=== PATIENT | male | born 1965 | race Two or more races ===

== ENCOUNTER 2023-01-18 19:23 | Emergency (ER) | payer BC, SELFPAY ==
[2023-01-18 19:31] VITALS: BP 133/89; PULSE 100; RESP 18; TEMP 37.1; O2SAT 98; BMI 25.8
--- NOTE | 2023-01-18 19:43 | ECG_ITS ---
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
--- NOTE | 2023-01-18 19:45 | PC.NURSE ---
patient complaints of cough for 2 weeks. state now he is starting to feel SOB and have pain between shoulders from coughing so hard. patient states it is starting to affect his work. bilat inspiratory and expiratory wheezes heard with auscultation. cough sometimes produces white phlegm.
--- NOTE | 2023-01-18 19:50 | ED_ITS ---
HPI - SOB/Dyspnea General Chief Complaint: Upper Respiratory Infection Stated Complaint: DIFF BREATHING, CONGESTION Time Seen by Provider: 01/18/23 19:25 Source: patient Mode of arrival: walk-in History of Present Illness HPI Narrative: Patient is a 57-year-old male who presents to the emergency department for 2- week history of shortness of breath, cough, wheezing. He states he has not had any objective fevers but has had hot and cold chills. He denies chest pain but has developed thoracic back pain that is worse with coughing and movement in the last several days. He reports some sputum production with coughing, no hemoptysis. He is a 1 pack/day cigarette smoker. No medications given prior to arrival. Related Data Previous Rx's Medication Instructions Recorded intcbxgihdkevbw-pydnrstatsjggzt-SI 10 ml PO Q6H PRN cold symptoms 01/18/23 2 mg-30 mg-10 mg/5 mL oral syrup #200 mL (Bromfed DM) doxycycline hyclate 100 mg tablet 100 mg PO BID 10 days #20 tabs 01/18/23 methylprednisolone 4 mg tablets in See Rx Instructions .Route 01/18/23 a dose pack (Medrol (Jeff)) .COMPLEX #21 ea Allergies Allergy/AdvReac Type Severity Reaction Status Date / Time No Known Drug Allergies Allergy Verified 01/18/23 19:35 Review of Systems ROS Constitutional Reports: chills; Denies: fever Ears, nose, mouth, and throat Reports: nasal congestion; Denies: throat pain Cardiovascular Denies: chest pain Respiratory Reports: shortness of breath, cough and wheezing Gastrointestinal Reports: nausea and vomiting Genitourinary Denies: painful urination Musculoskeletal Reports: back pain Integumentary/Breast Denies: rash PFSH PFSH Social History Smoking status: Current every day smoker Exam Narrative Exam Narrative: Gen.: Awake, alert, in no distress Head: Normocephalic, atraumatic ENT: Moist mucous membranes Respiratory: No respiratory distress, dry cough noted with expiratory wheezing Cardio: Regular rate and rhythm Back: No bony tenderness of the T-spine or L-spine Extremities: Moves extremities equally Psych: Normal mood and affect Neuro: No focal neuro deficit Skin: Warm, dry, intact Constitutional Vital Signs, click to edit/add: Last Vital Signs Temp 98.7 F 01/18/23 19:31 Pulse 89 01/18/23 21:15 Resp 16 01/18/23 20:51 BP 133/89 01/18/23 19:31 Pulse Ox 96 01/18/23 21:15 O2 Del Method Room Air 01/18/23 21:15 Course Vital Signs Vital signs: Vital Signs Temperature 98.7 F 01/18/23 19:31 Pulse Rate 100 H 01/18/23 19:31 Respiratory Rate 18 01/18/23 19:31 Blood Pressure 133/89 01/18/23 19:31 Pulse Oximetry 98 01/18/23 19:31 Oxygen Delivery Method Room Air 01/18/23 19:31 Temperature 98.7 F 01/18/23 19:31 Pulse Rate 89 01/18/23 21:15 Respiratory Rate 16 01/18/23 20:51 Blood Pressure 133/89 01/18/23 19:31 Pulse Oximetry 96 01/18/23 21:15 Oxygen Delivery Method Room Air 01/18/23 21:15 MDM - SOB/Dyspnea MDM Narrative Medical decision making narrative: IV established, labs drawn and COVID swab obtained. Patient given IV fluids, breathing treatments, Solu-Medrol. Lab studies including troponin and D-dimer are within normal limits. EKG is unremarkable. Chest x-ray shows no evidence of acute cardiopulmonary changes. Patient was given breathing treatments in the ER with albuterol inhaler to go from the ER. He will be started on doxycycline, steroids, albuterol inhaler and Bromfed-DM for home. No hypoxia. He appears well-hydrated and nontoxic. Follow-up with PCP and return to the ER if symptoms change or worsen. Medical Records Attestation: I reviewed the patient's medical records. Lab Data Attestation: I reviewed the patient's lab results. Labs: Lab Results 01/18/23 01/18/23 Range/Units 19:50 20:20 WBC 13.8 H (4.0-11.0) 10^3/uL RBC 4.91 (4.70-6.10) 10^6/uL Hgb 15.5 (14.0-18.0) g/dL Hct 45.1 (42.0-54.0) % MCV 91.9 (80.0-94.0) fL MCH 31.6 (25.9-34.0) pg MCHC 34.4 (29.9-35.2) g/dL RDW 13.0 (11.0-15.0) % Plt Count 308 (150-450) 10^3/uL MPV 10.6 (9.5-13.5) fL Neut % (Auto) 62.9 (43.0-75.0) % Lymph % (Auto) 24.3 (20.5-60.0) % [place] % (Auto) 7.3 (1.7-12.0) % Eos % (Auto) 4.4 (0.9-7.0) % Baso % (Auto) 0.7 (0.2-2.0) % Neut # (Auto) 8.7 H (1.4-6.5) 10^3/uL Lymph # (Auto) 3.4 (1.2-3.8) 10^3/uL [place] # (Auto) 1.0 H (0.3-0.8) 10^3/uL Eos # (Auto) 0.6 (0.0-0.7) 10^3/uL Baso # (Auto) 0.1 (0.0-0.1) 10^3/uL Abs Immat Gran (auto) 0.05 H (0.00-0.03) 10^3/uL Imm/Tot Granulo (auto) 0.4 (0.0-0.5) % PT 10.0 (9.0-11.6) sec INR 0.94 D-Dimer 0.21 (<=0.59) mg/L FEU Sodium 138 (136-145) mmol/L Potassium 4.0 (3.5-5.1) mmol/L Chloride 103 (98-107) mmol/L Carbon Dioxide 26.0 (21.0-32.0) mmol/L Anion Gap 13.0 BUN 11.0 (7.0-18.0) mg/dL Creatinine 1.13 (0.70-1.30) mg/dL Est GFR ( Amer) >60 (>=60) Est GFR (Non-Af Amer) >60 (>=60) BUN/Creatinine Ratio 9.7 Glucose 80 (74-106) mg/dL Calcium 9.1 (8.5-10.1) mg/dL Total Bilirubin 0.6 (0.2-1.0) mg/dL AST 25 (15-37) U/L ALT 33 (16-63) U/L Alkaline Phosphatase 124 H (46-116) U/L Troponin I High Sens 5.4 (4.0-76.1) pg/mL NT-Pro-B Natriuret Pep 25.0 (<=900.0) pg/mL Total Protein 7.8 (6.4-8.2) g/dL Albumin 4.0 (3.4-5.0) g/dL Globulin 3.8 g/dL Albumin/Globulin Ratio 1.1 SARS-CoV-2 (PCR) Negative (NEGATIVE) Imaging Data Chest x-ray: Attestation: I have reviewed the pertinent imaging results. ECG Data Attestation: I personally reviewed and interpreted this ECG as follows: (Normal sinus rhythm at a rate of 86, no acute ST elevation or ectopy. EKG reviewed by attending physician) ECG interpretation date: 01/18/23 ECG interpretation time: 20:15 Discharge Plan Discharge Chief Complaint: Upper Respiratory Infection Clinical Impression: Bronchitis Patient Disposition: Home, Self-Care Time of Disposition Decision: 20:40 Condition: Good Mode of Transportation: Private Vehicle Prescriptions / Home Meds: New methylprednisolone [Medrol (Jeff)] 4 mg tablets,dose pack See Rx Instructions .ROUTE .COMPLEX Qty: 21 0RF Rx Instructions: Taper as directed bktngndgddjcotb-dzhbsofqa-FQ [Bromfed DM] 2-30-10 mg/5 mL syrup 10 ml PO Q6H PRN (Reason: cold symptoms) Qty: 200 0RF doxycycline hyclate 100 mg tablet 100 mg PO BID 10 Days Qty: 20 0RF Instructions: How to Use a Metered-Dose Inhaler (ED), Acute Bronchitis (ED) Stand Alone Forms: Portal Instructions Referrals: Physician,Non-Staff, MD [Primary Care Provider] - 1 week Discharge Date/Time: 01/18/23 21:21
[2023-01-18 20:00] VITALS: PULSE 86
[2023-01-18 20:04] LABS: Basophils Absolute Auto 0.1 10^3/uL (0.0-0.1); Basophils Percent Auto 0.7 % (0.2-2.0); Eosinophils Absolute Auto 0.6 10^3/uL (0.0-0.7); Eosinophils Percent Auto 4.4 % (0.9-7.0); Hematocrit 45.1 % (42.0-54.0); Hemoglobin 15.5 g/dL (14.0-18.0); Immature Granulocytes Abs Auto 0.05 10^3/uL (0.00-0.03); Immature Granulocytes Pct Auto 0.4 % (0.0-0.5); Lymphocytes Absolute Auto 3.4 10^3/uL (1.2-3.8); Lymphocytes Percent Auto 24.3 % (20.5-60.0); Mean Corpuscular HGB Conc 34.4 g/dL (29.9-35.2); Mean Corpuscular Hemoglobin 31.6 pg (25.9-34.0); Mean Corpuscular Volume 91.9 fL (80.0-94.0); Mean Platelet Volume 10.6 fL (9.5-13.5); Monocytes Percent Auto 7.3 % (1.7-12.0); Neutrophils Absolute Auto 8.7 10^3/uL (1.4-6.5); Neutrophils Percent Auto 62.9 % (43.0-75.0); Platelet Count 308 10^3/uL (150-450); Red Blood Count 4.91 10^6/uL (4.70-6.10); White Blood Count 13.8 10^3/uL (4.0-11.0)
[2023-01-18 20:18] LABS: D Dimer 0.21 mg/L FEU (<=0.59); INR 0.94
[2023-01-18 20:20] VITALS: RESP 22; O2SAT 94
[2023-01-18] MEDS: 0.9 % SODIUM CHLORIDE 1,000 ML 999 ML IV (20:20)
[2023-01-18] MEDS: METHYLPREDNISOLONE SOD SUCC PF 125 MG/2 ML VIAL IVP (20:21)
--- NOTE | 2023-01-18 20:21 | XR_ITS ---
[address] [address] Patient Name: ANGELA MANRIQUE MRN: [id number] date: 1965 Sex: M Assigned Patient Location: ER Current Patient Location: ED.MAIN Accession/Order Number: [id number] Exam Date: 01/18/2023 20:28 Report Date: 01/18/2023 20:42 At the request of: RUDY MELTON Procedure: XR chest 1V EXAMINATION: XR chest 1V HISTORY: Cough COMPARISON: None. TECHNIQUE: PA and lateral chest x-rays FINDINGS: The lung parenchyma is free of consolidation or infiltrate. No pneumothorax or pleural effusion. The cardiac, mediastinal and hilar contours are normal. The visualized osseous structures exhibit no gross abnormality. XR/XR chest 1V IMPRESSION: No acute cardiopulmonary abnormality. Electronically authenticated by: JAI GUTIÉRREZ Date: 01/18/2023 20:42
[2023-01-18 20:27] LABS: Alanine Aminotransferase 33 U/L (16-63); Albumin Globulin Ratio 1.1; Alkaline Phosphatase 124 U/L (46-116); Aspartate Amino Transferase 25 U/L (15-37); BUN Creatinine Ratio 9.7; Bilirubin Total 0.6 mg/dL (0.2-1.0); Calcium 9.1 mg/dL (8.5-10.1); Chloride 103 mmol/L (98-107); Estimated GFR (African America >60 (>=60); Estimated GFR (Non-African Ame >60 (>=60); Globulin 3.8 g/dL; Glucose 80 mg/dL (74-106); Sodium 138 mmol/L (136-145); Total Protein 7.8 g/dL (6.4-8.2); Troponin I High Sensitivity 5.4 pg/mL (4.0-76.1)
[2023-01-18 20:35] LABS: SARS-CoV-2 Ag NEGATIVE (NEGATIVE)
[2023-01-18] MEDS: IPRATROPIUM/ALBUTEROL SULFATE 3 ML AMPUL.NEB IH (20:39)
[2023-01-18 20:40] VITALS: PULSE 85; RESP 18; O2SAT 96
[2023-01-18] MEDS: ALBUTEROL SULFATE 2.5 MG/0.5 ML VIAL NEB 0.5 MG IH (20:44)
[2023-01-18 20:51] VITALS: PULSE 86; RESP 16; O2SAT 97
[2023-01-18] MEDS: ALBUTEROL SULFATE 200 PUFF/6.7 GM INHALER IH (20:56)
--- NOTE | 2023-01-18 20:56 | RESP.RT ---
Albuterol MDI and spacer given to patient to take home.
[2023-01-18] MEDS: DOXYCYCLINE MONOHYDRATE 100 MG CAPSULE PO (21:04)
[2023-01-18 21:15] VITALS: PULSE 89; O2SAT 96
[2023-01-19 11:34] LABS: SARS-CoV-2 NAA NOT DETECTED (NOT DETECTE)
== END 2023-01-18 21:21 | disposition home or self-care (01) ==
PROVIDERS: Physician Assistant; Emergency Provider Emergency Medicine
DX: J40 Bronchitis, not specified as acute or chronic (principal); F17.210 Nicotine dependence, cigarettes, uncomplicated; Z20.822 Contact with and (suspected) exposure to COVID-19
CPT/HCPCS: 36415; 71045; 80053; 83880; 84484; 85025; 85378; 85610; 87635; 87811; 93005; 94640; 96374; 99285; J2930